=== PATIENT | male | born 1965 | race Caucasian/White ===

== ENCOUNTER 2016-10-03 11:23 | Inpatient (IN) | payer MEDICAID ==
[~2016-10-03] VITALS: Ht 188 cm; Wt 92.8 kg
[~2016-10-03 11:23] MED LIST: ALBU18HF INH; AMOX1TAB64 PO; CARV6.252 PO; FURO40TA6 PO; HTN MED; HYDR-3138 PO; HYDR-3240 PO; IBUP800T PO; LISI-167 PO; OXYC-302 PO; POTA20TA14 PO; [UNRECOGNIZED DRUG - REMARK]
[2016-10-03 12:09] LABS: HEMOGLOBIN 14.4 g/dL (13.7-18.0)
[2016-10-03 12:20] LABS: BLOOD UREA NITROGEN 19 mg/dL (7-18)
[2016-10-03 12:24] LABS: IS PT STATUS REG ER OR PRE ER? YES
[2016-10-03] MEDS ORDERED: FUROSEMIDE 40 MG/4 ML ONE (12:29)
[2016-10-03] MEDS ORDERED: FUROSEMIDE 100 MG/10 ML IV ONE (12:30)
[2016-10-03] MEDS ORDERED: ASPIRIN 81 MG TABLET CHEW ONE (12:52)
[2016-10-03] MEDS ORDERED: ASPIRIN 81 MG TABLET CHEW PO ONE (13:00)
[2016-10-03] MEDS ORDERED: MORPHINE SULFATE 4 MG/ML, 1ML IVPush PRN ×2 (13:00→14:00)
[2016-10-03] MEDS ORDERED: ALBUTEROL SULFATE 2.5 MG/3 ML NEB PRN (13:30)
[2016-10-03 13:53] VITALS: BP 134/98
[2016-10-03] MEDS: NICOTINE 7 MG/24 HR PATCH.TD24 TD SCH (14:00)
[2016-10-03] MEDS ORDERED: ONDANSETRON ODT 4 MG PO PRN (14:00)
[2016-10-03] MEDS ORDERED: BISACODYL 10 MG SUPP PR PRN (14:00)
[2016-10-03] MEDS ORDERED: POLYETHYLENE GLYCOL 17 GM PACKET PO PRN (14:00)
[2016-10-03] MEDS ORDERED: DOCUSATE 100 MG CAPSULE PO PRN (14:00)
[2016-10-03 16:35] LABS: IS PT STATUS REG ER OR PRE ER? NO
[2016-10-03] MEDS ORDERED: ALBUTEROL SULFATE 2.5 MG/3 ML NPPB PRN (17:00)
[2016-10-03] MEDS: HEPARIN 5,000 UNITS/ML, 1ML SQ SCH (17:47)
[2016-10-03 19:19] VITALS: BP 140/89
[2016-10-03 20:40] VITALS: BP 136/88
[2016-10-03] MEDS: CARVEDILOL 6.25 MG TABLET PO SCH (20:41)
[2016-10-03] MEDS: SODIUM CHLORIDE FLUSH 10ML SYR IVF SCH (20:41)
[2016-10-03] MEDS: LISINOPRIL 10 MG TABLET PO SCH (20:41)
[2016-10-03 22:39] LABS: IS PT STATUS REG ER OR PRE ER? NO
[2016-10-04 01:19] VITALS: BP 127/91
[2016-10-04] MEDS: HEPARIN 5,000 UNITS/ML, 1ML SQ SCH ×3 (01:22→17:59)
[2016-10-04] MEDS: ASPIRIN 325 MG TABLET EC PO SCH (05:27)
[2016-10-04 06:23] LABS: HEMOGLOBIN 14.8 g/dL (13.7-18.0)
[2016-10-04 06:38] LABS: BLOOD UREA NITROGEN 20 mg/dL (7-18)
[2016-10-04 06:43] LABS: ASPARTATE AMINO TRANSFERASE 34 U/L (15-37)
[2016-10-04 06:59] VITALS: BP 143/93
[2016-10-04] MEDS: CARVEDILOL 6.25 MG TABLET PO SCH ×2 (08:55→19:53)
[2016-10-04] MEDS: POTASSIUM CHLORIDE 20 MEQ TAB.ER.PRT PO SCH (08:55)
[2016-10-04] MEDS: SODIUM CHLORIDE FLUSH 10ML SYR IVF SCH ×2 (08:55→19:52)
[2016-10-04] MEDS: FUROSEMIDE 40 MG TABLET PO SCH (08:55)
[2016-10-04] MEDS: LISINOPRIL 10 MG TABLET PO SCH ×2 (08:56→19:52)
[2016-10-04] MEDS: IBUPROFEN 800 MG TABLET PO SCH (08:56)
[2016-10-04] MEDS: ONDANSETRON 2MG/ML, 2ML IVP PRN (12:39)
[2016-10-04 13:15] VITALS: BP 118/64
[2016-10-04 13:46] VITALS: BP 102/82
[2016-10-04] MEDS: NICOTINE 7 MG/24 HR PATCH.TD24 TD SCH (13:55)
[2016-10-04] MEDS: SPIRONOLACTONE 25 MG TABLET PO SCH (13:55)
[2016-10-04 19:14] VITALS: BP 126/91
[2016-10-05 01:43] VITALS: BP 120/87
[2016-10-05] MEDS: HEPARIN 5,000 UNITS/ML, 1ML SQ SCH ×3 (02:19→18:04)
[2016-10-05] MEDS: ONDANSETRON 2MG/ML, 2ML IVP PRN (05:00)
[2016-10-05] MEDS: ASPIRIN 325 MG TABLET EC PO SCH (05:01)
[2016-10-05 06:28] LABS: BLOOD UREA NITROGEN 29 mg/dL (7-18)
[2016-10-05 07:20] VITALS: BP 112/81
[2016-10-05] MEDS: IBUPROFEN 800 MG TABLET PO SCH (09:04)
[2016-10-05 09:07] VITALS: BP 131/80
[2016-10-05] MEDS: LISINOPRIL 10 MG TABLET PO SCH ×2 (09:08→20:15)
[2016-10-05] MEDS: SPIRONOLACTONE 25 MG TABLET PO SCH (09:08)
[2016-10-05] MEDS: CARVEDILOL 6.25 MG TABLET PO SCH ×2 (09:08→20:15)
[2016-10-05] MEDS: FUROSEMIDE 40 MG TABLET PO SCH (09:08)
[2016-10-05] MEDS: POTASSIUM CHLORIDE 20 MEQ TAB.ER.PRT PO SCH (09:09)
[2016-10-05] MEDS: SODIUM CHLORIDE FLUSH 10ML SYR IVF SCH ×2 (09:10→20:15)
[2016-10-05] MEDS ORDERED: ALUMINUM/MAG/SIMETHICONE 30 ML UDC PO PRN (14:00)
[2016-10-05 14:08] VITALS: BP 119/83
[2016-10-05] MEDS: NICOTINE 7 MG/24 HR PATCH.TD24 TD SCH (14:09)
[2016-10-05] MEDS: OXYcodone/APAP 5/325MG TABLET PO PRN (14:09)
[2016-10-05 18:46] VITALS: BP 119/82
[2016-10-06] MEDS: HEPARIN 5,000 UNITS/ML, 1ML SQ SCH ×3 (02:12→17:06)
[2016-10-06 02:19] VITALS: BP 110/73
[2016-10-06] MEDS: ASPIRIN 325 MG TABLET EC PO SCH (05:06)
[2016-10-06 05:49] LABS: BLOOD UREA NITROGEN 29 mg/dL (7-18)
[2016-10-06 08:02] VITALS: BP 119/84
[2016-10-06] MEDS: FUROSEMIDE 20 MG TABLET PO SCH (08:46)
[2016-10-06] MEDS: CARVEDILOL 6.25 MG TABLET PO SCH ×2 (08:46→20:13)
[2016-10-06] MEDS: POTASSIUM CHLORIDE 20 MEQ TAB.ER.PRT PO SCH (08:46)
[2016-10-06] MEDS: SPIRONOLACTONE 25 MG TABLET PO SCH (08:46)
[2016-10-06] MEDS: LISINOPRIL 10 MG TABLET PO SCH ×2 (08:46→20:13)
[2016-10-06] MEDS: SODIUM CHLORIDE FLUSH 10ML SYR IVF SCH ×2 (08:47→20:12)
[2016-10-06] MEDS: NICOTINE 7 MG/24 HR PATCH.TD24 TD SCH (13:15)
[2016-10-06 14:58] VITALS: BP 111/73
[2016-10-06 18:59] VITALS: BP 112/76
[2016-10-07 01:54] VITALS: BP 105/77
[2016-10-07] MEDS: ASPIRIN 325 MG TABLET EC PO SCH (05:49)
[2016-10-07] MEDS: HEPARIN 5,000 UNITS/ML, 1ML SQ SCH ×3 (05:49→23:28)
[2016-10-07 06:50] VITALS: BP 122/89
[2016-10-07] MEDS: FUROSEMIDE 20 MG TABLET PO SCH (08:11)
[2016-10-07] MEDS: CARVEDILOL 6.25 MG TABLET PO SCH ×2 (08:11→20:53)
[2016-10-07] MEDS: LISINOPRIL 10 MG TABLET PO SCH ×2 (08:11→20:53)
[2016-10-07] MEDS: SPIRONOLACTONE 25 MG TABLET PO SCH (08:11)
[2016-10-07] MEDS: POTASSIUM CHLORIDE 20 MEQ TAB.ER.PRT PO SCH (08:12)
[2016-10-07] MEDS: SODIUM CHLORIDE FLUSH 10ML SYR IVF SCH ×2 (08:12→20:53)
[2016-10-07] MEDS: OXYcodone/APAP 5/325MG TABLET PO PRN (08:17)
[2016-10-07] MEDS: NICOTINE 7 MG/24 HR PATCH.TD24 TD SCH (14:00)
[2016-10-07] MEDS ORDERED: SPIR25TA PO (14:54)
[2016-10-07] MEDS ORDERED: ASPI-650 PO (14:54)
[2016-10-07 17:12] VITALS: BP 129/89
[2016-10-07 18:34] VITALS: BP 124/82
[2016-10-08 02:13] VITALS: BP 107/71
[2016-10-08] MEDS: HEPARIN 5,000 UNITS/ML, 1ML SQ SCH ×3 (06:05→22:13)
[2016-10-08] MEDS: ASPIRIN 325 MG TABLET EC PO SCH (06:05)
[2016-10-08 06:55] VITALS: BP 126/85
[2016-10-08] MEDS: POTASSIUM CHLORIDE 20 MEQ TAB.ER.PRT PO SCH (08:55)
[2016-10-08] MEDS: LISINOPRIL 10 MG TABLET PO SCH ×2 (08:55→22:13)
[2016-10-08] MEDS: SPIRONOLACTONE 25 MG TABLET PO SCH (08:55)
[2016-10-08] MEDS: FUROSEMIDE 20 MG TABLET PO SCH (08:55)
[2016-10-08] MEDS: SODIUM CHLORIDE FLUSH 10ML SYR IVF SCH ×2 (08:55→22:14)
[2016-10-08] MEDS: CARVEDILOL 6.25 MG TABLET PO SCH ×2 (08:56→22:13)
[2016-10-08] MEDS: NICOTINE 7 MG/24 HR PATCH.TD24 TD SCH (14:00)
[2016-10-08 15:56] VITALS: BP 118/83
[2016-10-08 19:44] VITALS: BP 121/40
[2016-10-09 01:52] VITALS: BP 108/68
[2016-10-09] MEDS: ASPIRIN 325 MG TABLET EC PO SCH (06:15)
[2016-10-09] MEDS: HEPARIN 5,000 UNITS/ML, 1ML SQ SCH ×2 (06:16→14:00)
[2016-10-09 06:33] VITALS: BP 118/84
[2016-10-09] MEDS: POTASSIUM CHLORIDE 20 MEQ TAB.ER.PRT PO SCH (08:21)
[2016-10-09] MEDS: SPIRONOLACTONE 25 MG TABLET PO SCH (08:22)
[2016-10-09] MEDS: CARVEDILOL 6.25 MG TABLET PO SCH (08:22)
[2016-10-09] MEDS: LISINOPRIL 10 MG TABLET PO SCH (08:22)
[2016-10-09] MEDS: FUROSEMIDE 20 MG TABLET PO SCH (08:22)
[2016-10-09] MEDS: SODIUM CHLORIDE FLUSH 10ML SYR IVF SCH (08:31)
[2016-10-09] MEDS: OXYcodone/APAP 5/325MG TABLET PO PRN (08:31)
[2016-10-09 12:47] VITALS: BP 116/81
[2016-10-09] MEDS: NICOTINE 7 MG/24 HR PATCH.TD24 TD SCH (14:00)
== END 2016-10-09 16:20 | disposition home or self-care (01) | DRG 291 ==
LOC: ED 12:35 → EDIP 12:36 → ED 13:18 → 5SO 13:39 → 3NE 10-08 18:29
PROVIDERS: ADMIT Internal Medicine; ATTEND Internal Medicine
DX: I13.0 Hypertensive heart and chronic kidney disease with heart failure and stage 1 through stage 4 chronic kidney disease, or unspecified chronic kidney disease (principal); I50.43 Acute on chronic combined systolic (congestive) and diastolic (congestive) heart failure; E44.0 Moderate protein-calorie malnutrition; I42.9 Cardiomyopathy, unspecified; F15.10 Other stimulant abuse, uncomplicated; Z59.0 Homelessness; J44.9 Chronic obstructive pulmonary disease, unspecified; N18.2 Chronic kidney disease, stage 2 (mild); F17.210 Nicotine dependence, cigarettes, uncomplicated; Z82.49 Family history of ischemic heart disease and other diseases of the circulatory system; Z82.0 Family history of epilepsy and other diseases of the nervous system; Z83.3 Family history of diabetes mellitus; G62.9 Polyneuropathy, unspecified; Z66 Do not resuscitate; F10.10 Alcohol abuse, uncomplicated; Z51.5 Encounter for palliative care; Z68.26 Body mass index [BMI] 26.0-26.9, adult; Z98.890 Other specified postprocedural states; Z88.1 Allergy status to other antibiotic agents; Z71.6 Tobacco abuse counseling; Z91.19 Patient's noncompliance with other medical treatment and regimen; Z71.51 Drug abuse counseling and surveillance of drug abuser
CPT/HCPCS: 36415; 71010; 80048; 80053; 80061; 82040; 83605; 83690; 83735; 83880; 84484; 85025; 85610; 93005; 93306; 94640; 96374; J1644; J1940; J2405; Q0162

== ENCOUNTER 2017-06-01 12:40 | Inpatient (IN) | payer MEDICAID ==
[~2017-06-01] VITALS: Ht 188 cm; Wt 88.3 kg
[~2017-06-01 12:40] MED LIST changes: +ASPI-650 PO; -HYDR-3138 PO; +HYDR-3237 PO; +IBUP-1223 PO; -IBUP800T PO; +SPIR25TA PO
[2017-06-01] MEDS ORDERED: SODIUM CHLORIDE FLUSH 10ML SYR IVF ONE (13:30)
[2017-06-01] MEDS ORDERED: ASPIRIN 81 MG TABLET CHEW PO ONE (13:30)
[2017-06-01 14:03] LABS: HEMATOCRIT 43.7 % (39.2-51.8); HEMOGLOBIN 14.4 g/dL (13.7-18.0)
[2017-06-01 14:13] LABS: ASPARTATE AMINO TRANSFERASE 27 U/L (15-37); BLOOD UREA NITROGEN 22 mg/dL (7-18)
[2017-06-01] MEDS ORDERED: ASPIRIN 81 MG TABLET CHEW ONE ×2 (14:15→14:29)
[2017-06-01 14:22] LABS: IS PT STATUS REG ER OR PRE ER? YES
[2017-06-01] MEDS ORDERED: FUROSEMIDE 40 MG/4 ML ONE (14:35)
[2017-06-01] MEDS ORDERED: FUROSEMIDE 40 MG/4 ML IV ONE (15:00)
[2017-06-01] MEDS ORDERED: GUAIFENESIN/DM 200-20MG, 10ML UDC PO PRN (16:30)
[2017-06-01] MEDS ORDERED: LABETALOL 5MG/ML, 20ML IVPush PRN (16:30)
[2017-06-01] MEDS ORDERED: HYDROcodone/APAP 5/325 TABLET PO PRN (16:30)
[2017-06-01] MEDS ORDERED: ONDANSETRON ODT 4 MG PO PRN (16:30)
[2017-06-01] MEDS ORDERED: ONDANSETRON 2MG/ML, 2ML IVPush PRN (16:30)
[2017-06-01] MEDS ORDERED: POLYETHYLENE GLYCOL 17 GM PACKET PO PRN (16:30)
[2017-06-01] MEDS ORDERED: ASPIRIN 325 MG TABLET PO ONE (16:30)
[2017-06-01 16:51] LABS: IS PT STATUS REG ER OR PRE ER? YES
[2017-06-01 17:27] VITALS: BP 120/78
[2017-06-01 17:41] LABS: DAU SCREEN DISCLAIMER
[2017-06-01] MEDS ORDERED: BACL20TA PO (18:01)
[2017-06-01] MEDS: HEPARIN 5,000 UNITS/ML, 1ML SQ SCH (18:11)
[2017-06-01] MEDS: FUROSEMIDE 40 MG/4 ML IV SCH (18:11)
[2017-06-01 19:26] VITALS: BP 120/79
[2017-06-01] MEDS: LISINOPRIL 10 MG TABLET PO SCH (20:51)
[2017-06-01] MEDS: CARVEDILOL 6.25 MG TABLET PO SCH (20:51)
[2017-06-01] MEDS ORDERED: FAMOTIDINE 20 MG/2 ML IVPush SCH (21:00)
[2017-06-01 23:14] LABS: IS PT STATUS REG ER OR PRE ER? NO
[2017-06-02] MEDS: HEPARIN 5,000 UNITS/ML, 1ML SQ SCH ×3 (01:00→20:55)
[2017-06-02] MEDS: ASPIRIN 81 MG TABLET EC PO SCH (05:43)
[2017-06-02 05:44] VITALS: BP 119/83
[2017-06-02 05:45] LABS: HEMOGLOBIN 14.7 g/dL (13.7-18.0)
[2017-06-02 06:23] LABS: ASPARTATE AMINO TRANSFERASE 24 U/L (15-37); BLOOD UREA NITROGEN 24 mg/dL (7-18)
[2017-06-02 08:00] VITALS: BP 122/77
[2017-06-02] MEDS: SENNA/DOCUSATE TABLET PO SCH (09:00)
[2017-06-02 09:27] LABS: IS PT STATUS REG ER OR PRE ER? NO
[2017-06-02] MEDS: FUROSEMIDE 40 MG/4 ML IV SCH ×2 (10:59→17:31)
[2017-06-02] MEDS: FAMOTIDINE 20 MG TABLET PO SCH ×2 (11:00→20:54)
[2017-06-02] MEDS: LISINOPRIL 10 MG TABLET PO SCH ×2 (11:00→20:55)
[2017-06-02] MEDS: CARVEDILOL 6.25 MG TABLET PO SCH ×2 (11:00→20:55)
[2017-06-02 14:00] VITALS: BP 109/68
[2017-06-02] MEDS: SPIRONOLACTONE 25 MG TABLET PO SCH (17:31)
[2017-06-02 20:53] VITALS: BP 103/63
[2017-06-02 21:08] VITALS: BP 106/73
[2017-06-03 01:55] VITALS: BP 109/75
[2017-06-03] MEDS: HEPARIN 5,000 UNITS/ML, 1ML SQ SCH ×3 (04:41→22:49)
[2017-06-03 05:08] LABS: HEMATOCRIT 41.9 % (39.2-51.8); HEMOGLOBIN 13.6 g/dL (13.7-18.0); WHITE BLOOD COUNT 9.6 x10^3/uL (3.4-10)
[2017-06-03 05:23] LABS: BLOOD UREA NITROGEN 28 mg/dL (7-18)
[2017-06-03 05:27] LABS: ASPARTATE AMINO TRANSFERASE 23 U/L (15-37)
[2017-06-03] MEDS: ASPIRIN 81 MG TABLET EC PO SCH (06:33)
[2017-06-03] MEDS: FUROSEMIDE 40 MG/4 ML IV SCH (07:30)
[2017-06-03 08:05] VITALS: BP 109/76
[2017-06-03] MEDS ORDERED: REGADENOSON 0.4 MG/5 ML SYRINGE ONE (08:29)
[2017-06-03] MEDS ORDERED: FUROSEMIDE 40 MG/4 ML IV SCH (09:00)
[2017-06-03 10:30] VITALS: BP 122/83
[2017-06-03] MEDS: CARVEDILOL 6.25 MG TABLET PO SCH ×2 (10:41→22:48)
[2017-06-03] MEDS: LISINOPRIL 10 MG TABLET PO SCH ×2 (10:41→22:47)
[2017-06-03] MEDS: FAMOTIDINE 20 MG TABLET PO SCH ×2 (10:41→22:47)
[2017-06-03] MEDS: SENNA/DOCUSATE TABLET PO SCH (10:43)
[2017-06-03 13:26] VITALS: BP 93/55
[2017-06-03 17:45] VITALS: BP 109/67
[2017-06-03] MEDS: SPIRONOLACTONE 25 MG TABLET PO SCH (17:48)
[2017-06-03 20:26] VITALS: BP 119/83
[2017-06-04 03:29] VITALS: BP 116/73
[2017-06-04] MEDS: HEPARIN 5,000 UNITS/ML, 1ML SQ SCH ×3 (04:00→22:06)
[2017-06-04 05:27] LABS: HEMATOCRIT 41.8 % (39.2-51.8); HEMOGLOBIN 13.8 g/dL (13.7-18.0); WHITE BLOOD COUNT 9.8 x10^3/uL (3.4-10)
[2017-06-04 05:40] LABS: ASPARTATE AMINO TRANSFERASE 19 U/L (15-37); BLOOD UREA NITROGEN 28 mg/dL (7-18)
[2017-06-04 07:28] VITALS: BP 119/80
[2017-06-04] MEDS: SENNA/DOCUSATE TABLET PO SCH (07:58)
[2017-06-04] MEDS: SPIRONOLACTONE 25 MG TABLET PO SCH (08:28)
[2017-06-04] MEDS: CARVEDILOL 6.25 MG TABLET PO SCH ×2 (08:28→21:02)
[2017-06-04] MEDS: LISINOPRIL 10 MG TABLET PO SCH (08:28)
[2017-06-04] MEDS: FUROSEMIDE 20 MG/2 ML IV SCH (08:29)
[2017-06-04] MEDS: FAMOTIDINE 20 MG TABLET PO SCH ×2 (08:29→21:02)
[2017-06-04] MEDS: ASPIRIN 81 MG TABLET EC PO SCH (08:29)
[2017-06-04 12:43] VITALS: BP 115/80
[2017-06-04 16:40] VITALS: BP 117/87
[2017-06-04 20:00] VITALS: BP 129/73
[2017-06-05 02:00] VITALS: BP 127/89
[2017-06-05 05:26] LABS: BLOOD UREA NITROGEN 30 mg/dL (7-18)
[2017-06-05] MEDS: HEPARIN 5,000 UNITS/ML, 1ML SQ SCH (05:49)
[2017-06-05] MEDS: ASPIRIN 81 MG TABLET EC PO SCH (05:49)
[2017-06-05 06:40] VITALS: BP_SYST 106; BP_SYST 125; BP_DIAS 68; BP_DIAS 83
[2017-06-05] MEDS: FUROSEMIDE 20 MG/2 ML IV SCH (07:42)
[2017-06-05] MEDS: SPIRONOLACTONE 25 MG TABLET PO SCH (07:42)
[2017-06-05] MEDS: CARVEDILOL 6.25 MG TABLET PO SCH (07:43)
[2017-06-05] MEDS: FAMOTIDINE 20 MG TABLET PO SCH (07:43)
[2017-06-05] MEDS ORDERED: LISINOPRIL 10 MG TABLET PO SCH (09:00)
[2017-06-05] MEDS ORDERED: SENNA/DOCUSATE TABLET PO SCH (09:00)
[2017-06-05] MEDS ORDERED: OMNIPAQUE 350 MG/ML, 100ML BOTTLE ONE (09:01)
[2017-06-05 12:05] VITALS: BP 113/82
[2017-06-05] MEDS ORDERED: ASPI-621 PO (14:18)
[2017-06-05] MEDS ORDERED: LISI-167 PO (14:18)
[2017-06-05] MEDS ORDERED: ATOR20TA9 PO (14:19)
== END 2017-06-05 14:37 | disposition home or self-care (01) | DRG 291 ==
LOC: ED 15:24 → EDIP 15:28 → 5SO 17:00 → 4EST 06-04 16:30
PROVIDERS: ADMIT Hospitalist; ATTEND Hospitalist
DX: I13.0 Hypertensive heart and chronic kidney disease with heart failure and stage 1 through stage 4 chronic kidney disease, or unspecified chronic kidney disease (principal); E43 Unspecified severe protein-calorie malnutrition; I47.2 Ventricular tachycardia; I42.9 Cardiomyopathy, unspecified; I50.43 Acute on chronic combined systolic (congestive) and diastolic (congestive) heart failure; G62.9 Polyneuropathy, unspecified; E78.5 Hyperlipidemia, unspecified; Z68.25 Body mass index [BMI] 25.0-25.9, adult; F17.200 Nicotine dependence, unspecified, uncomplicated; I50.84 End stage heart failure; J44.9 Chronic obstructive pulmonary disease, unspecified; N18.3 Chronic kidney disease, stage 3 (moderate); Z79.82 Long term (current) use of aspirin; Z82.49 Family history of ischemic heart disease and other diseases of the circulatory system; Z83.3 Family history of diabetes mellitus; Z99.81 Dependence on supplemental oxygen
CPT/HCPCS: 36415; 71010; 71275; 78452; 80048; 80053; 80061; 80307; 82040; 83036; 83735; 83880; 84100; 84484; 85025; 85379; 85610; 85730; 93005; 93017; 93306; 96374; J1644; J1940; J2785; Q9967; A9502; C9898; G0479; S0028